=== PATIENT | female | born 1965 | race Native Hawaiian/Other Pacific Islander ===

== ENCOUNTER 2023-06-10 10:33 | Day surgery (SDC) | payer MEDICARE ==
[~2023-06-10] VITALS: Ht 152.4 cm; Wt 109.2 kg
[~2023-06-10 10:33] MED LIST: ALBU90OI INH; AMLO5 PO; ATOR20 PO; Aspir 8181 MG PO; FENO160 PO; GABA100 PO; GABA300 PO; HYDR1TAB94 PO; LOSA50 PO; METFORMIN HCL500 MG PO; NOVOLIN N100 UNIT/2 SC; PRAZ2 PO; RISP2 PO; TRAZ50 PO; TRULICITY3 MG/0.5 M SC; VIIBRYD40 MG PO; VITAMIN D310 MC4 PO
--- NOTE | 2023-06-10 11:32 | NUR ---
06/10/23 1132 Sarah Granados PT COMFORTABLE IN BED. CALL LIGHT WITHIN REACH. BED IN LOWEST POSITION.
[2023-06-10 12:36] VITALS: BP 165/98
== END 2023-06-10 12:52 | disposition home or self-care (01) ==
LOC: ORSCSDS 10:33
PROVIDERS: Specialist
PROC: 0DBL8ZX Excision of Transverse Colon, Via Natural or Artificial Opening Endoscopic, Diagnostic (ICD-10-PCS; principal; 2023-06-10 11:45)
DX: Z12.11 Encounter for screening for malignant neoplasm of colon (principal); Z86.010 Personal history of colon polyps; D12.3 Benign neoplasm of transverse colon; K64.8 Other hemorrhoids; I10 Essential (primary) hypertension; E78.5 Hyperlipidemia, unspecified; J45.909 Unspecified asthma, uncomplicated; E11.42 Type 2 diabetes mellitus with diabetic polyneuropathy; Z79.4 Long term (current) use of insulin; Z79.84 Long term (current) use of oral hypoglycemic drugs; Z79.899 Other long term (current) drug therapy; Z79.82 Long term (current) use of aspirin; E66.01 Morbid (severe) obesity due to excess calories; Z68.42 Body mass index [BMI] 45.0-49.9, adult
CPT/HCPCS: 82947; 88305; J2704; J7120

== ENCOUNTER → 2023-09-21 | Outpatient (CLI) | payer MEDICARE | END | disposition home or self-care (01) | LOC: LAB 11:20 → LAB SHORT 11:20 | DX: L83 Acanthosis nigricans (principal); L98.8 Other specified disorders of the skin and subcutaneous tissue; R23.4 Changes in skin texture | CPT/HCPCS: 88305; 88312 ==

== ENCOUNTER 2024-07-13 16:11 | Emergency (ER) | payer MEDICARE ==
[~2024-07-13] VITALS: Ht 152.4 cm; Wt 111.6 kg
[~2024-07-13 16:11] MED LIST changes: +AMOCLA875 PO
[2024-07-13 16:32] VITALS: BP 155/84
[2024-07-13 17:14] LABS: BASOPHILS ABSOLUTE AUTO 0.03 K/mm3 (0.00-0.23); BASOPHILS PERCENT AUTO 0 % (0-2); EOSINOPHILS ABSOLUTE AUTO 0.18 K/mm3 (0.00-0.68); EOSINOPHILS PERCENT AUTO 2 % (0-6); Hematocrit 39.4 % (33.0-51.0); Hemoglobin 12.8 g/dL (11.5-16.0); IMMATURE GRAN ABSOLUTE AUTO 0.05 K/mm3 (0.00-0.10); IMMATURE GRAN PERCENT AUTO 1 % (0-1); LYMPHOCYTES ABSOLUTE AUTO 1.64 K/mm3 (0.84-5.20); LYMPHOCYTES PERCENT AUTO 18 % (21-46); MONOCYTES ABSOLUTE AUTO 0.85 K/mm3 (0.16-1.47); MONOCYTES PERCENT AUTO 9 % (4-13); Mean Corpuscular HGB 26.9 pg (26.0-34.0); Mean Corpuscular HGB Conc 32.5 g/dL (31.5-36.5); Mean Corpuscular Volume 83 fL (80-100); Mean Platelet Volume 9.7 fL (9.1-12.4); NEUTROPHILS ABSOLUTE AUTO 6.57 K/mm3 (1.96-9.15); NEUTROPHILS PERCENT AUTO 71 % (41-73); Platelet Count 293 K/mm3 (150-400); RDW Coefficient Variation 13.8 % (11.7-14.2); RDW Standard Deviation 41.6 fL (35.1-46.3); Red Blood Cell Count 4.75 M/mm3 (3.80-5.20); White Blood Cell Count 9.32 K/mm3 (4.00-11.30)
[2024-07-13 17:23] LABS: Albumin, Blood 3.5 g/dL (3.4-5.0); Albumin/Globulin Ratio 0.9 (0.8-1.8); Bilirubin, Total 0.3 mg/dL (0.1-1.0); Bun/Creatinine Ratio 26.8 (12.0-20.0); Calcium, Blood 9.1 mg/dL (8.5-10.1); Creatinine, Blood 0.56 mg/dL (0.40-1.00); Globulin, Blood 3.8 g/dL (2.2-4.0); Total Protein, Blood 7.3 g/dL (6.4-8.2)
== END 2024-07-13 18:53 | disposition home or self-care (01) ==
LOC: ER 16:11
PROVIDERS: Student in an Organized Health Care Education/Training Program
DX: M75.01 Adhesive capsulitis of right shoulder (principal)
CPT/HCPCS: 73030; 80053; 85025